=== PATIENT | male | born 1940 | race Caucasian/White ===

== ENCOUNTER 2023-08-08 11:02 | Outpatient (CLI) | payer MEDICARE, SELFPAY | END 2023-08-08 11:03 | disposition home or self-care (01) | LOC: NFLDREF 11:04 | PROVIDERS: PCP Family Medicine; Visit Provider Family Medicine | DX: E87.1 Hypo-osmolality and hyponatremia (principal) | CPT/HCPCS: 80053 ==

== ENCOUNTER 2023-10-11 09:27 | Outpatient (CLI) | payer MEDICARE, SELFPAY | END 2023-10-11 09:28 | disposition home or self-care (01) | LOC: NFLDREF 09:27 | PROVIDERS: PCP Family Medicine; Visit Provider Family Medicine | DX: I10 Essential (primary) hypertension (principal) | CPT/HCPCS: 80048 ==